=== PATIENT | male | born 1960 | race Caucasian/White ===

== ENCOUNTER 2017-06-07 09:41 | Outpatient (CLI) | payer OTHER ==
[2017-06-07 17:39] LABS: BILIRUBIN,URINE NEGATIVE (NEGATIVE); GLUCOSE, URINE (UA) NEGATIVE (NEGATIVE); KETONES,URINE (UA) NEGATIVE (NEGATIVE); LEUKOCYTE ESTERASE, URINE NEGATIVE (NEGATIVE); NITRITE,URINE NEGATIVE (NEGATIVE); OCCULT BLOOD,URINE NEGATIVE (NEGATIVE); PROTEIN,URINE NEGATIVE (NEGATIVE); UROBILINOGEN,URINE 0.2 (NORMAL) E.U./dL (NORMAL)
[2017-06-07 17:46] LABS: CLARITY,URINE CLEAR (CLEAR)
[2017-06-07 18:00] LABS: BACTERIA,URINE Rare /HPF (None Seen); CASTS, URINE 0-2 Hyaline Casts /LPF; RBC,URINE 0-5 /HPF (0-5); SQUAMOUS EPITHELIAL CELL,UR RARE Squamous (<= Few)
[2017-06-07 18:05] LABS: ALBUMIN 4.3 g/dL (3.2-5.5); ALBUMIN/GLOBULIN RATIO 1.7 (1.0-2.2); ALKALINE PHOSPHATASE 50 IU/L (42-121); ALT ALANINE AMINOTRANSFERASE 24 IU/L (10-60); AST ASPARTATE AMINOTRANSFERASE 25 IU/L (10-42); BILIRUBIN,TOTAL 0.6 mg/dL (0.2-1.0); BUN - BLOOD UREA NITROGEN 12 mg/dL (6-20); CARBON DIOXIDE - CO2 25 mmol/L (21-32); CHLORIDE 106 mmol/L (101-111); CHOL/HDL RATIO 4.8 (<5.0); CHOLESTEROL 169 mg/dL; CREATININE 1.1 mg/dL (0.6-1.2); GFR - MDRD 70 (>89); GLUCOSE 113 mg/dL (70-100); HDL CHOLESTEROL 35 mg/dL; LDL CHOLESTEROL,CALCULATED 115 mg/dL; LDL/HDL RATIO 3.3 (<3.6); SODIUM 139 mmol/L (135-145); TOTAL PROTEIN 6.8 g/dL (6.7-8.2); VLDL CHOLESTEROL 19 mg/dL
== END 2017-06-07 09:42 | disposition home or self-care (01) ==
LOC: LAB.F 09:41
PROVIDERS: ATTEND Family Medicine
DX: Z00.00 Encounter for general adult medical examination without abnormal findings (principal); I10 Essential (primary) hypertension; Z12.5 Encounter for screening for malignant neoplasm of prostate; Z13.29 Encounter for screening for other suspected endocrine disorder
CPT/HCPCS: 36415; 80053; 80061; 81001; 83721; 84153; 84443

== ENCOUNTER 2018-07-18 09:34 | Outpatient (CLI) | payer BC ==
[2018-07-18 17:41] LABS: HGB - HEMOGLOBIN 14.3 g/dL (14.0-18.0); MEAN CORPUSCULAR HEMOGLOBIN 29.5 pg (27.0-31.0); MEAN CORPUSCULAR HGB CONC 33.3 g/dL (32.0-36.0); MEAN CORPUSCULAR VOLUME 88.7 fL (80.0-94.0); MEAN PLATELET VOLUME 8.3 fL (7.4-11.4); RED BLOOD COUNT 4.86 10^6/uL (4.70-6.10); RED CELL DISTRIBUTION WIDTH 14.1 % (12.0-15.0)
[2018-07-18 18:10] LABS: ALBUMIN 4.2 g/dL (3.2-5.5); ALBUMIN/GLOBULIN RATIO 1.5 (1.0-2.2); ALKALINE PHOSPHATASE 48 IU/L (42-121); ALT ALANINE AMINOTRANSFERASE 27 IU/L (10-60); AST ASPARTATE AMINOTRANSFERASE 24 IU/L (10-42); BILIRUBIN,TOTAL 0.7 mg/dL (0.2-1.0); BUN - BLOOD UREA NITROGEN 14 mg/dL (6-20); CALCIUM 9.5 mg/dL (8.5-10.3); CARBON DIOXIDE - CO2 26 mmol/L (21-32); CHLORIDE 104 mmol/L (101-111); CHOL/HDL RATIO 3.8 (<5.0); CHOLESTEROL 163 mg/dL; CREATININE 0.9 mg/dL (0.6-1.2); GFR - MDRD 88 (>89); GLUCOSE 111 mg/dL (70-100); HDL CHOLESTEROL 43 mg/dL; LDL CHOLESTEROL,CALCULATED 98 mg/dL; LDL/HDL RATIO 2.3 (<3.6); SODIUM 139 mmol/L (135-145); VLDL CHOLESTEROL 22 mg/dL
== END 2018-07-18 09:35 | disposition home or self-care (01) ==
LOC: LAB.F 09:34
PROVIDERS: ATTEND Internal Medicine
DX: I10 Essential (primary) hypertension (principal); Z12.5 Encounter for screening for malignant neoplasm of prostate
CPT/HCPCS: 36415; 80053; 80061; 83721; 84153; 85027

== ENCOUNTER 2020-02-25 11:11 | Outpatient (CLI) | payer BC ==
[2020-02-25 15:38] LABS: BASOPHILS # (AUTO) 0.1 10^3/uL (0.0-0.1); BASOPHILS % (AUTO) 1.2 %; EOSINOPHILS # (AUTO) 0.3 10^3/uL (0.0-0.7); EOSINOPHILS % (AUTO) 4.3 %; HGB - HEMOGLOBIN 16.2 g/dL (14.0-18.0); LYMPHOCYTES # (AUTO) 1.9 10^3/uL (1.5-3.5); LYMPHOCYTES % (AUTO) 26.2 %; MEAN CORPUSCULAR HEMOGLOBIN 30.5 pg (27.0-31.0); MEAN CORPUSCULAR HGB CONC 34.6 g/dL (32.0-36.0); MEAN CORPUSCULAR VOLUME 88.1 fL (80.0-94.0); MEAN PLATELET VOLUME 9.9 fL (7.4-11.4); MONOCYTES # (AUTO) 0.7 10^3/uL (0.0-1.0); NEUTROPHILS # (AUTO) 4.3 10^3/uL (1.5-6.6); NEUTROPHILS % (AUTO) 58.8 %; PLT - PLATELET COUNT 378 10^3/uL (130-450); RED BLOOD COUNT 5.31 10^6/uL (4.70-6.10); WHITE BLOOD COUNT 7.4 x10^3/uL (4.8-10.8)
[2020-02-25 15:51] LABS: ALBUMIN 4.7 g/dL (3.2-5.5); ALBUMIN/GLOBULIN RATIO 1.8 (1.0-2.2); ALKALINE PHOSPHATASE 57 IU/L (42-121); ALT ALANINE AMINOTRANSFERASE 31 IU/L (10-60); AST ASPARTATE AMINOTRANSFERASE 20 IU/L (10-42); BILIRUBIN,TOTAL 0.7 mg/dL (0.2-1.0); BUN - BLOOD UREA NITROGEN 20 mg/dL (6-20); CALCIUM 9.7 mg/dL (8.5-10.3); CARBON DIOXIDE - CO2 24 mmol/L (21-32); CHLORIDE 101 mmol/L (101-111); CHOL/HDL RATIO 5.2 (<5.0); CHOLESTEROL 206 mg/dL; CREATININE 0.9 mg/dL (0.6-1.2); GLUCOSE 119 mg/dL (70-100); HDL CHOLESTEROL 40 mg/dL; LDL CHOLESTEROL,CALCULATED 115 mg/dL; LDL/HDL RATIO 2.9 (<3.6); SODIUM 136 mmol/L (135-145); TOTAL PROTEIN 7.3 g/dL (6.7-8.2); VLDL CHOLESTEROL 51 mg/dL
== END 2020-02-25 11:12 | disposition home or self-care (01) ==
LOC: LAB.S 11:11
PROVIDERS: ATTEND Registered Nurse
DX: I10 Essential (primary) hypertension (principal); R00.2 Palpitations; I44.0 Atrioventricular block, first degree; K21.9 Gastro-esophageal reflux disease without esophagitis; J45.909 Unspecified asthma, uncomplicated
CPT/HCPCS: 36415; 80053; 80061; 83721; 84153; 84443; 85025

== ENCOUNTER 2020-03-06 09:10 | Outpatient (CLI) | payer BC | END 2020-03-06 09:11 | disposition home or self-care (01) | LOC: DI 09:10 | PROVIDERS: ATTEND Registered Nurse | DX: R00.8 Other abnormalities of heart beat (principal); I51.7 Cardiomegaly | CPT/HCPCS: 93306 ==

== ENCOUNTER 2020-04-02 12:41 | Outpatient (CLI) | payer BC ==
--- NOTE | 2020-04-02 21:04 | CARDIAC PROCEDURE NOTE ---
DATE OF SERVICE: 04/02/2020 Physician: Risa Barkley MD INDICATION: Palpitations, hypertension. CARDIAC RISK FACTORS: Male gender, hypertension, family history of early heart disease (grandfather at age 51 and father at age 47 of cardiac disease). DESCRIPTION OF PROCEDURE: After signing informed consent, the patient underwent a Jimy-protocol treadmill stress test with nuclear myocardial perfusion imaging. RESTING HEART RATE: 68. PEAK HEART RATE: 140 (86% predicted maximum heart rate for age). RESTING BLOOD PRESSURE: 132/103. PEAK BLOOD PRESSURE: 241/96. The patient exercised for 6 minutes on a Jimy-protocol treadmill stress test. He achieved a peak heart rate of 140 (86% PMHR) and 7.1 METs. The patient had no chest pain, developed suddenly severe shortness of breath in the last 1-1/2 minutes of exercise. Oxygen saturation remained normal; however, at 95-98% on room air throughout the entire test. The patient reported his perceived exertion at 16-17/20 on the Chandrika scale at peak. There was no wheezing audible at peak RESTING EKG: Normal sinus rhythm, ventricular bigeminy, first-degree AV block, left atrial enlargement, poor R-wave progression. During exercise, his PVCs were nearly entirely suppressed, only 1 PVC seen during exercise. EKG AT PEAK: Upsloping ST segment depressions in leads II, III, aVF, and V4 through V6 (nonspecific for ischemia). SUMMARY 1. Abnormal resting EKG with first-degree block and ventricular bigeminy. 2. Healthy suppression of ventricular bigeminy with exertion. 3. Fair exercise tolerance. 4. Nonspecific EKG changes develop with treadmill exercise at an adequate level of stress achieved. 5. Nuclear images will be reported separately and showed: moderate reversible anterior wall perfusion defect (partly improves with proning). IMPRESSION: 1. Abnormal stress test, suspicious for coronary ischemia. RECOMMENDATIONS: 1. Light activity. 2. Aggressive risk factor modification: HTN was poorly controlled and meds need adjusting, cholesterol control and start 1 baby aspirin daily. 2. Cardiology evaluation GURJIT. 3. Coronary angiogram. cc: FIDENCIO Babin TD: 04/02/2020 16:07 [facility]
--- NOTE | 2020-04-04 11:35 | Nuclear Medicine Report ---
PROCEDURE: Rest and exercise myocardial perfusion SPECT with gated imaging and ejection fraction INDICATIONS: PALPITATIONS, HTN RADIOPHARMACEUTICAL: 8 point mCi Tc-99m Myoview IV at rest and 24.7 mCi Tc-99m Myoview IV at peak ex ercise. [id number] was performed. TECHNIQUE: Radiopharmaceutical was injected at peak stress test, and also at rest. SPECT images wer e obtained. SPECT myocardial perfusion images were displayed in short axis, horizontal long axis, an d vertical long axis views. Gated images were reviewed using Auto[employer] software. COMPARISON: None available. FINDINGS: Raw data: There is good myocardial labeling by radiotracer. No significant motion artifacts. Lung- to-heart ratio is 0.31 (normal is less than 0.38 for tetrafosmin tracer). Left ventricle function: Gated images demonstrate normal left ventricle wall thickening. No segment al wall motion abnormality. No transient ischemic dilation; TID is 1.02 (normal less than 1.3). The left ventricle resting end-diastolic volume is normal. Left ventricle stress ejection fraction is 7 3%; normal values are above 45%. Myocardial perfusion: There is a moderate sized, moderately severe, reversible perfusion defect in t he anterior wall. On prone imaging, anterior wall has improved activity, suggesting attenuation artif act. IMPRESSION: 1. Probably normal myocardial perfusion images. There is a moderate sized, moderately severe, reversi ble perfusion defect in the anterior wall. On prone imaging, anterior wall has improved activity, sug gesting attenuation artifact. 2. Normal left ventricular volume and systolic function. 3. Please correlate with stress EKG result. PQRS ATTESTATIONS: Measure 322 - Is this imaging test primarily performed on a low-risk surgery patient for preoperative evaluation within 30 days preceding their low-risk non-cardiac surgery? Low-risk surgery is defined as cardiac or myocardial infarction less than 1%, including (but not limited to) endoscopic pr ocedures, superficial procedures, cataract surgery, and excisional breast surgery: Answer: No Measure 323 - Is this imaging test performed primarily for the monitoring of an asymptomatic patient who had percutaneous coronary intervention on the visit date or within 2 years of the visit date? An swer: No Measure 324 - Is this imaging test performed primarily for the initial detection and risk assessment on an asymptomatic, low coronary heart disease patient? Low CHD risk definition = clinicians should consider the maximum number of available patient factors used to estimate risk based on [place] (A TP III criteria), typically age, gender, diabetes, smoking status, and use of blood pressure medicati on, and integrate age appropriate estimates for missing elements, such as LDL or standard blood press ure. Answer: No Reviewed by: Suhail Lagos MD on 04/04/2020 11:34 AM PST Approved by: Suhail Lagos MD on 04/04/2020 11:34 AM PST Station ID: [id number]
== END 2020-04-02 12:42 | disposition home or self-care (01) ==
LOC: DI 12:41
PROVIDERS: ATTEND Registered Nurse
DX: R00.2 Palpitations (principal); I44.0 Atrioventricular block, first degree; I10 Essential (primary) hypertension; R94.31 Abnormal electrocardiogram [ECG] [EKG]
CPT/HCPCS: 78452; 93017; A9500

== ENCOUNTER 2021-04-29 08:15 | Outpatient (CLI) | payer BC ==
--- NOTE | 2021-04-29 09:18 | XRAY Report ---
PROCEDURE: Shoulder 3 View BILAT INDICATIONS: BILAT SHOULDER PAIN TECHNIQUE: 3 views of the bilateral shoulders were acquired. COMPARISON: None. FINDINGS: BONES: No acute, displaced fracture. The joint spaces are maintained. Left: Mild to moderate arthrosis of the acromioclavicular and glenohumeral articulations. Right: Mild to moderate arthrosis of the acromioclavicular and glenohumeral articulations. SOFT TISSUES: No focal abnormality or appreciable pneumothorax. IMPRESSION: 1.No acute osseous abnormality. Reviewed by: Rey Hernandez MD on 04/29/2021 9:17 AM [facility] Approved by: Rey Hernandez MD on 04/29/2021 9:17 AM [facility] Station ID: [id number]
== END 2021-04-29 08:16 | disposition home or self-care (01) ==
LOC: DI 08:15
PROVIDERS: ATTEND Internal Medicine
DX: M25.512 Pain in left shoulder (principal); M25.511 Pain in right shoulder

== ENCOUNTER 2021-08-26 10:46 | Outpatient (CLI) | payer BC ==
--- NOTE | 2021-08-26 14:38 | MRI Report ---
PROCEDURE: Shoulder RT W/O INDICATIONS: RIGHT ROTATOR CUFF TEAR TECHNIQUE: Noncontrast oblique coronal T2 fast spin echo with fat saturation, oblique sagittal T1 spin echo and T2 fast spin echo with fat saturation, axial T1 spin echo and T2 fast spin echo with fat saturation t hrough the shoulder. COMPARISON: Shoulder radiographs 04/29/2021. FINDINGS: Image quality: Excellent. Rotator cuff: There is full-thickness tearing of the supraspinatus tendon and the anterior fibers of the infraspinatus tendon from the distal insertions measuring 1.9 cm in anteroposterior dimension. Pr oximal tendon retraction is seen measuring approximately 3.1 cm from the distal insertion site. Poste rior infraspinatus tendinosis is seen. The teres minor tendon is intact. There is moderate tendinosis and low-grade partial intrasubstance tearing of the subscapularis tendon at the distal insertion. No significant rotator cuff muscle atrophy is seen. Bones and bursae: No acute trabecular bone injury. Chronic traction cystic changes are seen in the po sterosuperior humeral head as well as the greater and lesser tuberosities near the rotator cuff tendo n insertions. No focal glenohumeral cartilage defect is seen. Moderate acromioclavicular osteoarthros is with marginal osteophyte formation. A small amount of subacromial/subdeltoid bursal fluid communic ates with the glenohumeral joint space. Capsule and soft tissues: No displaced labral tear is seen. There is proximal biceps long head tendin osis with perching along the medial aspect of the bicipital groove. The glenohumeral ligaments are gr ossly intact. IMPRESSION: 1.Full-thickness tearing of the supraspinatus tendon and anterior fibers infraspinatus tendon at thei r distal for presents measuring 1.9 cm in anteroposterior dimension with proximal tendon retraction m easuring up to 3.1 cm. 2.Moderate tendinosis and low-grade intrasubstance tearing of the subscapularis tendon at the superio r insertion. 3.Tendinosis of the proximal biceps long head tendon with perching along the medial aspect of the bic ipital groove. 4.Moderate acromioclavicular osteoarthrosis. 5.Small amount of subacromial/subdeltoid bursal fluid communicates with the glenohumeral joint space. Reviewed by: Casey Álvarez MD on 08/26/2021 2:36 PM PDT Approved by: Casey Álvarez MD on 08/26/2021 2:36 PM PDT Station ID: [id number]
== END 2021-08-26 10:47 | disposition home or self-care (01) ==
LOC: DI 10:46
PROVIDERS: ATTEND Orthopaedic Surgery
DX: M75.101 Unspecified rotator cuff tear or rupture of right shoulder, not specified as traumatic (principal); M19.011 Primary osteoarthritis, right shoulder

== ENCOUNTER 2022-03-03 09:03 | Outpatient (CLI) | payer BC ==
[2022-03-03 14:12] LABS: BASOPHILS # (AUTO) 0.1 10^3/uL (0.0-0.1); BASOPHILS % (AUTO) 1.1 %; EOSINOPHILS # (AUTO) 0.3 10^3/uL (0.0-0.7); EOSINOPHILS % (AUTO) 3.8 %; HCT - HEMATOCRIT 41.8 % (42.0-52.0); HGB - HEMOGLOBIN 13.7 g/dL (14.0-18.0); LYMPHOCYTES # (AUTO) 1.7 10^3/uL (1.5-3.5); LYMPHOCYTES % (AUTO) 21.5 %; MEAN CORPUSCULAR HEMOGLOBIN 29.5 pg (27.0-31.0); MEAN CORPUSCULAR HGB CONC 32.8 g/dL (32.0-36.0); MEAN CORPUSCULAR VOLUME 90.1 fL (80.0-94.0); MONOCYTES # (AUTO) 0.8 10^3/uL (0.0-1.0); MONOCYTES % (AUTO) 9.8 %; NEUTROPHILS % (AUTO) 63.4 %; PLT - PLATELET COUNT 321 10^3/uL (130-450); RED BLOOD COUNT 4.64 10^6/uL (4.70-6.10); RED CELL DISTRIBUTION WIDTH 12.5 % (12.0-15.0); WHITE BLOOD COUNT 7.8 x10^3/uL (4.8-10.8)
[2022-03-03 14:34] LABS: ALBUMIN 4.4 g/dL (3.2-5.5); ALBUMIN/GLOBULIN RATIO 1.8 (1.0-2.2); ALKALINE PHOSPHATASE 49 IU/L (42-121); ALT ALANINE AMINOTRANSFERASE 29 IU/L (10-60); AST ASPARTATE AMINOTRANSFERASE 22 IU/L (10-42); BILIRUBIN,TOTAL 0.7 mg/dL (0.2-1.0); BUN - BLOOD UREA NITROGEN 18 mg/dL (6-20); CALCIUM 9.3 mg/dL (8.5-10.3); CARBON DIOXIDE - CO2 26 mmol/L (21-32); CHLORIDE 103 mmol/L (101-111); CHOL/HDL RATIO 5.2 (<5.0); CHOLESTEROL 161 mg/dL; CREATININE 1.1 mg/dL (0.6-1.2); GFR - MDRD 69 (>89); GLUCOSE 116 mg/dL (70-100); HDL CHOLESTEROL 31 mg/dL; LDL CHOLESTEROL,CALCULATED 78 mg/dL; LDL/HDL RATIO 2.5 (<3.6); POTASSIUM 4.2 mmol/L (3.5-5.0); SODIUM 137 mmol/L (135-145); TOTAL PROTEIN 6.8 g/dL (6.7-8.2); TRIGLYCERIDES 262 mg/dL; VLDL CHOLESTEROL 52 mg/dL
[2022-03-03 14:43] LABS: THYROID STIMULATING HORMONE 1.04 uIU/mL (0.34-5.60)
== END 2022-03-03 09:04 | disposition home or self-care (01) ==
LOC: LAB.S 09:03
PROVIDERS: ATTEND Registered Nurse
DX: Z79.899 Other long term (current) drug therapy (principal); Z13.220 Encounter for screening for lipoid disorders; Z12.5 Encounter for screening for malignant neoplasm of prostate; Z13.29 Encounter for screening for other suspected endocrine disorder
CPT/HCPCS: 36415; 80053; 80061; 83721; 84153; 84443; 85025

== ENCOUNTER 2023-04-05 09:59 | Outpatient (CLI) | payer OTHER ==
[2023-04-05 14:46] LABS: CHOL/HDL RATIO 4.6 (<5.0); CHOLESTEROL 214 mg/dL; HDL CHOLESTEROL 47 mg/dL; LDL CHOLESTEROL,CALCULATED 124 mg/dL; LDL/HDL RATIO 2.6 (<3.6); TRIGLYCERIDES 216 mg/dL (48-352); VLDL CHOLESTEROL 43 mg/dL
== END 2023-04-05 10:00 | disposition home or self-care (01) ==
LOC: LAB.S 09:59
PROVIDERS: ATTEND Family Medicine
DX: E78.5 Hyperlipidemia, unspecified (principal)
CPT/HCPCS: 36415; 80061; 83721